=== PATIENT | male | born 1995 | race Caucasian/White ===

== ENCOUNTER 2016-12-13 01:23 | Emergency (ER) | payer OTHER ==
[2016-12-13 02:16] LABS: PLATELET COUNT 221 x10^3mcL (130-400)
[2016-12-13 02:18] LABS: BASOPHIL % 3.4 % (0-2)
[2016-12-13 02:26] LABS: CALCIUM 8.4 mg/dL (8.5-10.1); CARBON DIOXIDE 30.4 mmol/L (21-32); CHLORIDE SERUM 105 mmol/L (98-107); CREATININE SERUM 0.8 mg/dL (0.7-1.3); GFR1 > 60 mL/min; GLUCOSE SERUM 105 mg/dL (74-106); POTASSIUM SERUM 3.6 mmol/L (3.5-5.1); SODIUM SERUM 142 mmol/L (136-145)
[2016-12-13 02:44] LABS: ALBUMIN 4.2 g/dL (3.4-5.0); ALKALINE PHOSPHATASE 75 U/L (46-116); ALT/SGPT 26 U/L (16-63); AST/SGOT 14 U/L (15-37); BILIRUBIN TOTAL 0.52 mg/dL (0.20-1.00); TOTAL PROTEIN, SERUM 7.1 g/dL (6.4-8.2)
[2016-12-13 03:04] VITALS: BP 111/58
== END 2016-12-13 03:04 | disposition home or self-care (01) ==
LOC: ED 01:23
PROVIDERS: Emergency Medicine
DX: K62.5 Hemorrhage of anus and rectum (principal); R10.9 Unspecified abdominal pain
CPT/HCPCS: Q0092